=== PATIENT | female | born 1990 | race Caucasian/White ===

== ENCOUNTER 2018-07-26 16:22 | Inpatient (IN) | payer OTHER ==
[~2018-07-26] VITALS: Ht 160 cm; Wt 63.5 kg
[~2018-07-26 16:22] MED LIST: DOCUSATE SODIU100 MG PO; MACROBID 100 M100 MG PO; MOTRIN IB200 MG PO; PRENATAL CAPLE1 EACH PO; PRENATE ADVANCE PO; PROCTOCORT30 MG RC
[2018-07-26] MEDS ORDERED: PRENATABS RX T1 EACH PO (17:15)
== END 2018-07-30 17:29 | DRG 153 ==
LOC: LDR 16:22 → OB/GYN 07-27 17:46
PROVIDERS: ADMIT Obstetrics & Gynecology
PROC: 8E0ZXY6 Isolation (ICD-10-PCS; principal; 2018-07-26)
PROC: 4A033R1 Measurement of Arterial Saturation, Peripheral, Percutaneous Approach (ICD-10-PCS; 2018-07-26)
PROC: BY4FZZZ Ultrasonography of Third Trimester, Single Fetus (ICD-10-PCS; 2018-07-26)
PROC: BU4CZZZ Ultrasonography of Uterus and Ovaries (ICD-10-PCS; 2018-07-26)
DX: J11.1 Influenza due to unidentified influenza virus with other respiratory manifestations (principal); O98.813 Other maternal infectious and parasitic diseases complicating pregnancy, third trimester; B96.0 Mycoplasma pneumoniae [M. pneumoniae] as the cause of diseases classified elsewhere; Z34.83 Encounter for supervision of other normal pregnancy, third trimester; B34.9 Viral infection, unspecified

== ENCOUNTER 2018-08-21 15:29 | Inpatient (IN) | payer OTHER ==
[~2018-08-21] VITALS: Ht 162.6 cm; Wt 68.0 kg
[~2018-08-21 15:29] MED LIST changes: +PRENATABS RX T1 EACH PO
[2018-09-03] MEDS ORDERED: FERREX 150 FOR1 EAC1 PO (07:41)
== END 2018-09-06 12:26 | disposition home or self-care (01) | DRG 785 ==
LOC: OB/GYN 08-31 08:30 → O/R 09-03 06:15 → OB/GYN 09-03 14:47
PROVIDERS: ADMIT Obstetrics & Gynecology
PROC: 4A1HXCZ Monitoring of Products of Conception, Cardiac Rate, External Approach (ICD-10-PCS; 2018-09-03)
PROC: 0UB70ZZ Excision of Bilateral Fallopian Tubes, Open Approach (ICD-10-PCS; 2018-09-03)
PROC: 4A033R1 Measurement of Arterial Saturation, Peripheral, Percutaneous Approach (ICD-10-PCS; 2018-09-03)
PROC: 10D00Z1 Extraction of Products of Conception, Low, Open Approach (ICD-10-PCS; principal; 2018-09-03 14:00)
DX: O34.211 Maternal care for low transverse scar from previous cesarean delivery (principal); O75.82 Onset (spontaneous) of labor after 37 completed weeks of gestation but before 39 completed weeks gestation, with delivery by (planned) cesarean section; Z3A.39 39 weeks gestation of pregnancy; Z30.2 Encounter for sterilization; Z37.0 Single live birth

== ENCOUNTER 2022-09-21 19:45 | Emergency (ER) | payer OTHER ==
[~2022-09-21] VITALS: Ht 160 cm; Wt 49.4 kg
[~2022-09-21 19:45] MED LIST changes: +FERREX 150 FOR1 EAC1 PO
== END 2022-09-21 22:41 | disposition home or self-care (01) ==
LOC: ER 19:45
DX: M79.605 Pain in left leg (principal); M79.604 Pain in right leg; Z88.0 Allergy status to penicillin

== ENCOUNTER 2022-09-23 18:11 | Emergency (ER) | payer OTHER ==
[~2022-09-23] VITALS: Ht 162.6 cm; Wt 51.3 kg
== END 2022-09-23 22:32 | disposition home or self-care (01) ==
LOC: ER 18:11
DX: M79.606 Pain in leg, unspecified (principal); N63.20 Unspecified lump in the left breast, unspecified quadrant; Z88.0 Allergy status to penicillin; Z20.822 Contact with and (suspected) exposure to COVID-19

== ENCOUNTER 2022-09-30 12:10 | Outpatient (CLI) | payer OTHER | END 2022-09-30 12:29 | disposition home or self-care (01) | LOC: SONOGRAMA 12:10 | PROVIDERS: ATTEND Surgery | DX: N60.11 Diffuse cystic mastopathy of right breast (principal); N60.12 Diffuse cystic mastopathy of left breast; D24.2 Benign neoplasm of left breast ==

== ENCOUNTER 2022-10-31 10:31 | Outpatient (CLI) | payer OTHER | END 2022-10-31 10:39 | disposition home or self-care (01) | LOC: SONOGRAMA 10:31 | PROVIDERS: ATTEND Surgery | DX: N60.11 Diffuse cystic mastopathy of right breast (principal); N61.0 Mastitis without abscess ==

== ENCOUNTER 2022-11-04 11:19 | Outpatient (CLI) | payer OTHER ==
[~2022-11-04 11:19] MED LIST changes: -CLEOCIN HCL300 MG PO
[2022-11-04] MEDS ORDERED: CLEOCIN HCL300 MG PO (13:55)
== END 2022-11-04 11:35 | disposition home or self-care (01) ==
LOC: SONOGRAMA 11:19
PROVIDERS: ATTEND Surgery
DX: D23.9 Other benign neoplasm of skin, unspecified (principal)

== ENCOUNTER 2022-11-04 14:15 | Day surgery (SDC) | payer OTHER ==
[~2022-11-04 14:15] MED LIST changes: +CLEOCIN HCL300 MG PO
== END 2022-11-04 19:20 | disposition home or self-care (01) ==
LOC: CIR.AMB 14:15
PROVIDERS: ATTEND Surgery
DX: N61.1 Abscess of the breast and nipple (principal); N61.0 Mastitis without abscess; N61.22 Granulomatous mastitis, left breast; Z88.0 Allergy status to penicillin; Z20.822 Contact with and (suspected) exposure to COVID-19

== ENCOUNTER → 2022-11-04 | Outpatient (CLI) | payer OTHER ==
[~2022-11-04] MED LIST changes: +CLEOCIN HCL300 MG PO
== END | disposition home or self-care (01) ==
LOC: LAB 13:01
PROVIDERS: ATTEND Surgery
DX: N61.1 Abscess of the breast and nipple (principal); N60.11 Diffuse cystic mastopathy of right breast; N60.12 Diffuse cystic mastopathy of left breast

== ENCOUNTER 2022-11-09 13:06 | Emergency (ER) | payer OTHER ==
[~2022-11-09] VITALS: Ht 162.6 cm; Wt 51.3 kg
== END 2022-11-09 19:07 | disposition home or self-care (01) ==
LOC: ER 13:06
DX: R10.11 Right upper quadrant pain (principal); Z88.0 Allergy status to penicillin

== ENCOUNTER 2022-11-10 15:08 | Emergency (ER) | payer OTHER ==
[~2022-11-10] VITALS: Ht 162.6 cm; Wt 51.3 kg
== END 2022-11-10 21:01 | disposition home or self-care (01) ==
LOC: ER 15:08
DX: R91.8 Other nonspecific abnormal finding of lung field (principal); J18.8 Other pneumonia, unspecified organism; Z88.0 Allergy status to penicillin

== ENCOUNTER → 2022-11-11 | Outpatient (CLI) | payer OTHER | END | disposition home or self-care (01) | LOC: MRI 11:15 | PROVIDERS: ATTEND General Practice | DX: C34.90 Malignant neoplasm of unspecified part of unspecified bronchus or lung (principal) | CPT/HCPCS: 72147 ==

== ENCOUNTER 2023-03-03 13:16 | Outpatient (CLI) | payer OTHER | END 2023-03-03 13:28 | disposition home or self-care (01) | LOC: SONOGRAMA 13:16 | PROVIDERS: ATTEND Surgery | DX: N60.11 Diffuse cystic mastopathy of right breast (principal); N60.12 Diffuse cystic mastopathy of left breast ==